=== PATIENT | female | born 1990 | race Caucasian/White ===

== ENCOUNTER 2018-10-05 15:49 | Observation (INO) | payer OTHER ==
[~2018-10-05] VITALS: Ht 165.1 cm; Wt 94.8 kg
[2018-10-05 16:40] VITALS: BP 103/62
[2018-10-05] MEDS ORDERED: LEVO75 PO (16:43)
== END 2018-10-05 20:35 | disposition home or self-care (01) ==
LOC: 4S 15:49
PROVIDERS: ADMIT Obstetrics & Gynecology; ATTEND Obstetrics & Gynecology
DX: O26.853 Spotting complicating pregnancy, third trimester (principal); O62.9 Abnormality of forces of labor, unspecified; O99.283 Endocrine, nutritional and metabolic diseases complicating pregnancy, third trimester; E03.9 Hypothyroidism, unspecified; O48.0 Post-term pregnancy; Z3A.40 40 weeks gestation of pregnancy

== ENCOUNTER 2018-10-08 11:00 | Observation (INO) | payer OTHER ==
[~2018-10-08] VITALS: Ht 160 cm; Wt 95.7 kg
[~2018-10-08 11:00] MED LIST: LEVO75 PO
[2018-10-08] MEDS ORDERED: PREN1TAB80 PO (20:24)
== END 2018-10-08 12:35 | disposition home or self-care (01) ==
LOC: 4S 11:00
PROVIDERS: ADMIT Obstetrics & Gynecology; ATTEND Obstetrics & Gynecology
DX: O48.0 Post-term pregnancy (principal); Z3A.40 40 weeks gestation of pregnancy
CPT/HCPCS: 81002; G0378

== ENCOUNTER 2018-10-08 14:35 | Inpatient (IN) | payer OTHER ==
[~2018-10-08] VITALS: Ht 165.1 cm; Wt 95.3 kg
[2018-10-08] MEDS ORDERED: RINGERS SOLUTION,LACTATED 1,000 ML IV PRN (20:17)
[2018-10-08] MEDS ORDERED: OXYTOCIN 30 UNITS/LACT RINGERS 500 ML IV ONE (20:17)
[2018-10-08] MEDS ORDERED: PREN1TAB80 PO (20:24)
[2018-10-08] MEDS ORDERED: METOCLOPRAMIDE HCL 5 MG/ML 2 ML VIAL IVP PRN (20:30)
[2018-10-08] MEDS ORDERED: CITRIC ACID/SODIUM CITRATE 30 ML SOLUTION UDCUP PO PRN (20:30)
[2018-10-08] MEDS ORDERED: FentaNYL CITRATE-PF 100 MCG/2 ML VIAL IVP PRN (20:30)
[2018-10-08 21:02] LABS: BASOPHILS % (AUTO) 0.1 % (0.0-2.0); EOSINOPHILS % (AUTO) 1.3 % (1.0-6.0); HEMOGLOBIN 12.9 g/dL (12.0-16.0); LYMPHOCYTES # (AUTO) 2.7 K/uL (1.0-4.8); LYMPHOCYTES % (AUTO) 30.4 % (22.0-44.0); MEAN CORPUSCULAR HEMOGLOBIN 31.5 pg (26.0-34.0); MEAN CORPUSCULAR HGB CONC 33.8 G/dL (31.0-37.0); MEAN CORPUSCULAR VOLUME 93 fL (80-100); MONOCYTES # (AUTO) 0.5 K/uL (0.1-1.0); MONOCYTES % (AUTO) 5.9 % (2.0-9.0); NEUTROPHILS # (AUTO) 5.5 K/uL (1.8-7.7); NEUTROPHILS % (AUTO) 62.3 % (40.0-70.0); PLATELET COUNT (AUTO) 247 K/uL (150-450); RED BLOOD CELL COUNT(AUTO) 4.08 MIL/uL (4.00-5.20)
[2018-10-08 21:03] VITALS: BP 107/68
[2018-10-08] MEDS ORDERED: MISOPROSTOL 50 MCG TABLET PO ONE (21:30)
[2018-10-08] MEDS ORDERED: PNEUMOCOCCAL VACCINE POLYVALENT 0.5 ML VIAL [PPSV23] IM ONE (23:00)
[2018-10-09] MEDS ORDERED: LIDOCAINE/PF 2% 5 ML VIAL ONE (00:41)
[2018-10-09] MEDS ORDERED: ROPIVACAINE HCL/PF 0.2% 100 ML ED ONE (00:42)
[2018-10-09] MEDS ORDERED: ROPIVACAINE HCL/PF 0.2% 100 ML ED PRN (01:15)
[2018-10-09] MEDS ORDERED: DiphenhydrAMINE HCL 50 MG/ML VIAL IVP PRN (01:15)
[2018-10-09] MEDS ORDERED: ONDANSETRON HCL 4 MG/2 ML VIAL IVP PRN (01:15)
[2018-10-09] MEDS ORDERED: NALBUPHINE HCL 10 MG/ML VIAL IVP PRN (01:15)
[2018-10-09] MEDS ORDERED: OXYTOCIN 30 UNITS/LACT RINGERS 500 ML IV PRN (03:08)
[2018-10-09] MEDS: RINGERS SOLUTION,LACTATED 1,000 ML IV SCH ×3 (03:13→15:55)
[2018-10-09] MEDS ORDERED: LEVOTHYROXINE SODIUM 75 MCG TABLET PO SCH (06:30)
[2018-10-09] MEDS ORDERED: OXYGEN THERAPY IH SCH (08:00)
[2018-10-09] MEDS ORDERED: ACETAMINOPHEN/CODEINE 300-30 MG TABLET PO PRN ×2 (15:30)
[2018-10-09] MEDS ORDERED: LANOLIN 7 GM OINTMENT TP PRN (15:30)
[2018-10-09] MEDS ORDERED: GLYCERIN/WITCH HAZEL LEAF 40 PADS JAR TP PRN (15:30)
[2018-10-09] MEDS ORDERED: BENZOCAINE 20%/MENTHOL 56 GM SPRAY CANISTER TP PRN (15:30)
[2018-10-09] MEDS: MAGNESIUM HYDROXIDE SUSPENSION 30 ML UDCUP PO SCH (21:23)
[2018-10-09] MEDS: IBUPROFEN 800 MG TABLET PO SCH (23:00)
[2018-10-10] MEDS: IBUPROFEN 800 MG TABLET PO SCH ×3 (00:27→14:06)
[2018-10-10] MEDS ORDERED: ACET-66 PO (08:01)
[2018-10-10] MEDS ORDERED: IBUP-2070 PO (08:02)
[2018-10-10] MEDS ORDERED: DSS100 PO (08:03)
[2018-10-10] MEDS: MAGNESIUM HYDROXIDE SUSPENSION 30 ML UDCUP PO SCH (09:18)
[2018-10-10] MEDS ORDERED: GUM MASTIC/STORAX/MSAL/ALCOHOL LIQUID 0.67 ML VIAL TP ONE (10:05)
== END 2018-10-10 17:40 | disposition home or self-care (01) | DRG 807 ==
LOC: 4S 20:13 → OBSVTOIN 20:13
PROVIDERS: ADMIT Obstetrics & Gynecology; ATTEND Obstetrics & Gynecology
PROC: 3E02340 Introduction of Influenza Vaccine into Muscle, Percutaneous Approach (ICD-10-PCS; 2018-10-08)
PROC: 10E0XZZ Delivery of Products of Conception, External Approach (ICD-10-PCS; principal; 2018-10-09)
PROC: 3E0R3BZ Introduction of Anesthetic Agent into Spinal Canal, Percutaneous Approach (ICD-10-PCS; 2018-10-09)
PROC: 00HU33Z Insertion of Infusion Device into Spinal Canal, Percutaneous Approach (ICD-10-PCS; 2018-10-09)
DX: O80 Encounter for full-term uncomplicated delivery (principal); Z3A.41 41 weeks gestation of pregnancy; Z37.0 Single live birth; Z23 Encounter for immunization
CPT/HCPCS: 86850; 86900; 86901; 90686; J2590; J2795; J3490; J7120